=== PATIENT | female | born 1975 | race Caucasian/White ===

== ENCOUNTER 2017-09-14 08:30 | Day surgery (SDC) | payer BC ==
[2017-09-12 13:24] VITALS: BMI 22.8
--- NOTE | 2017-09-14 11:29 | OP ---
DATE OF OPERATION: 09/14/2017 PREOPERATIVE DIAGNOSIS: Chronic pelvic pain, endometriosis, suspected intraabdominal adhesions. POSTOPERATIVE DIAGNOSIS: Chronic pelvic pain, endometriosis, suspected intraabdominal adhesions. PROCEDURE: Diagnostic laparoscopy, lysis of adhesions ATTENDING SURGEON: Sherrie Kaye MD FELLOW: Cee Hyde, PGY 5 RESIDENT: Sean Goldstein MD, PGY 2 ANESTHESIA: General via ET tube. INTRAVENOUS FLUIDS: Sterile saline, 1000. URINE OUTPUT: 200 mL. ESTIMATED BLOOD LOSS: 10 mL. INTRAOPERATIVE FINDINGS: Exam Under Anesthesia: 8 weeks size retroverted uterus that was immobile, no adnexal mass palpated. Laparoscopy: Abdominal survey significant for periumbilical omental adhesions as well as a peritonealized flap arising from the right ovarian fossa and attaching onto the uterus. The ovary was included. Moderate filmy adhesive disease throughout the abdomen. Endometriosis, peritoneal implants, were seen on the right pelvic side wall. OPERATIVE PROCEDURE: The patient was consented on the risks, benefits, and alternatives to surgery, and she elected to proceed. All consents were signed. Patient was taken to the operating room where general anesthesia via ET tube was induced without difficulty. She was positioned in dorsal lithotomy position using Artie stirrups with attention paid to avoid any pressure points. An exam under anesthesia was performed with findings as noted above. The patient was prepped and draped in the usual sterile fashion, and a Madrigal catheter was inserted into the bladder, and it was found to be draining pale, clear urine. SCDs were placed and turned on for the duration of the procedure. Gloves were changed, and the abdomen was then approached sterilely. A 5-mm incision at the umbilical base was performed, and Veress needle was introduced into the abdomen while tenting the abdominal wall. Peritoneal entry was confirmed by a drop in intraabdominal pressure. The abdomen was insufflated to 15 mmHg using carbon dioxide gas. A 5-mm trocar was then inserted into the abdomen under direct visualization. Survey of the underlying structures showed no injury upon entry. A second 5-mm skin incision was created 2/3 of the distance between the umbilicus and the on the patients right side. A second trocar, again 5 mm, was placed under direct visualization. The procedure was then repeated on the left side to insert a third trocar in the left lower quadrant. Operative findings were as noted above. Attention was first turned to the periumbilical omental adhesions, which were taken down using Harmonic scalpel. Excellent hemostasis was noted. [place] graspers were then used to dissect the peritonealized flap that was seen in the right ovarian fossa. The adhesions appeared filmy and clear. An avascular window was identified, and the area was taken down using Harmonic scalpel. Again, excellent hemostasis was noted. Both prior to and after the adhesion was taken down, the ureter was seen transperitoneally. Again, excellent hemostasis was noted. Attention was then turned to the suspected endometriosis implant that was seen in the right pelvic side wall. A communications representative sample was obtained by tenting the peritoneum and excising it using sharp dissection. This was sent to Pathology. Excellent hemostasis. The abdomen was then thoroughly irrigated and was again surveyed, and hemostasis was found to be excellent. The abdomen was desufflated and trocars were removed under direct visualization. All laparoscopic instruments were removed. The skin incisions were then repaired with 4-0 Monocryl in a simple interrupted fashion. The patient tolerated the procedure well and was returned to PACU in stable condition. All lap, instrument, and sponge counts were correct x2. Dr. Kaye was present and scrubbed throughout the entire procedure. This operative note was completed by Dr. Sean Goldstein. SHERIRE KAYE M.D. RADHA/[id number]
[2017-09-14] MEDS ORDERED: ONDANSETRON 4 MG/2 ML VIAL IVPUSH PRN (11:47)
[2017-09-14] MEDS ORDERED: oxyCODONE HCL 5 MG TABLET PO PRN ×2 (11:47)
[2017-09-14 12:53] VITALS: BP 108/60; PULSE 67; TEMP 98.2
--- NOTE | 2017-09-20 16:34 | PATH ---
Surgical Pathology Report Patient Name: RAJ DIAL Med. Rec. #: [id number] /Age/Gender: 1975 (Age: 41) / F Account: [id number] Location: [facility] AMBULATORY Taken: 09/14/2017 Received: 09/15/2017 Reported: 09/20/2017 Physicians: Jerome Kaye M.D. Specimen(s) Received PERITONEAL IMPLANT Clinical History Pelvic pain, pelvic adhesions, history of endometriosis Final Diagnosis PELVIC SIDEWALL, RIGHT, PERITONEAL IMPLANT, BIOPSY: ENDOMETRIOSIS. Comment: Immunohistochemical stains performed at [place], [place] ([id number]) and interpreted at [facility] show CD10 highlight endometrial stroma, supporting the above diagnosis. Electronically Signed Mihaela Tobin M.D. Gross Description Received in formalin labeled "peritoneal implant," is a 0.7 x 0.6 x 0.1 cm nunez-brown soft tissue fragment. The specimen is submitted in toto in one cassette. 09/18/2017 [facility]18[facility]2017
== END 2017-09-14 14:00 | disposition home or self-care (01) ==
LOC: FASU 08:30
PROVIDERS: ATTEND Obstetrics & Gynecology Reproductive Endocrinology
PROC: 0DNW4ZZ Release Peritoneum, Percutaneous Endoscopic Approach (ICD-10-PCS; principal; 2017-09-14 08:42)
DX: N80.8 Other endometriosis (principal); R10.2 Pelvic and perineal pain; K66.0 Peritoneal adhesions (postprocedural) (postinfection)
CPT/HCPCS: 84703; 88305-TC; 94760